=== PATIENT | female | born 1975 | race American Indian/Alaskan Native ===

== ENCOUNTER 2021-12-19 11:42 | Emergency (ER) | payer OTHER ==
--- NOTE | 2021-12-19 12:48 | Emergency Department Report ---
- General Stated Complaint: RT PINKY FINGER INJURY Time Seen by Provider: 12/19/21 12:40 - History of Present Illness Initial Comments: 46-year-old black female presents emergency department for evaluation of right fifth finger injury. She states that she was inside of a store, and a picture fell of the wall and the back of the cut her on her right fifth finger. She presents with laceration with bleeding controlled to that area. -: Sudden, hour(s) (1) Extremity Location: Right: Hand (Fifth finger) Place: other (Inside of a store) Patient Tetanus UTD: No Context: accidental Associated Symptoms: none Treatments Prior to Arrival: bandage - Related Data Allergies Allergy/AdvReac Type Severity Reaction Status Date / Time No Known Allergies Allergy Verified 12/19/21 12:58 ED Review of Systems ROS: Stated complaint: RT PINKY FINGER INJURY Other details as noted in HPI Comment: All other systems reviewed and negative Constitutional: denies: chills, fever Eyes: denies: eye pain ENT: denies: ear pain Respiratory: denies: cough, shortness of breath Skin: denies: change in color Neurological: denies: headache ED Physical Exam - General General appearance: alert, in no apparent distress - Head Head exam: Present: atraumatic, normocephalic - Eye Eye exam: Present: normal appearance. Absent: conjunctival injection - Neck Neck exam: Present: normal inspection - Respiratory Respiratory exam: Absent: respiratory distress - GI/Abdominal GI/Abdominal exam: Absent: distended - Extremities Exam Extremities exam: Present: normal inspection - Expanded Upper Extremity Exam Right Hand Wrist exam: Present: tenderness, laceration. Absent: swelling Hand L/R Front: 1 - Positive: laceration. Negative: normal inspection, nail injury (#), foreign body, amputation, avulsion Vascular: Present: normal capillary refill, radial pulse. Absent: vascular compromise, Pallo - Back Exam Back exam: Present: normal inspection - Neurological Exam Neurological exam: Present: alert, oriented X3 - Psychiatric Psychiatric exam: Present: normal affect, normal mood - Skin Skin exam: Present: warm, dry, normal color ED Course Vital Signs 12/19/21 12/19/21 12:55 12:58 Temperature 98.6 F 98.6 F Pulse Rate 80 80 Respiratory 16 16 Rate Blood Pressure 140/80 Blood Pressure 140/80 [Left] O2 Sat by Pulse 99 99 Oximetry - Laceration /Wound Repair Right Finger Wound Location: upper extremity (Right fifth finger) Wound Length (cm): 1 Wound's Depth, Shape: superficial, linear Wound Explored: clean Irrigated w/ Saline (ccs): 40 Betadine Prep?: No Wound Repaired With: Dermabond Progress: Well approximated. Patient tolerated well. ED Medical Decision Making - Medical Decision Making 46-year-old black female presents emergency department for evaluation of right fifth finger injury. She states that she was inside of a store, and a picture fell of the wall and the back of the cut her on her right fifth finger. She presents with laceration with bleeding controlled to that area. Superficial laceration to right fifth finger repaired per my procedure note. Tdap updated. Patient discharged home and advised to follow-up with primary c are provider or in the ED for any worsening or concerning symptoms. She verbalized understanding of and agreement with plan of care. Critical care attestation.: If time is entered above; I have spent that time in minutes in the direct care of this critically ill patient, excluding procedure time. ED Disposition Clinical Impression: Finger laceration Qualifiers: Encounter type: initial encounter Finger: little finger Damage to nail status: without damage Foreign body presence: without foreign body Laterality: right Qualified Code(s): S61.216A - Laceration without foreign body of right little finger without damage to nail, initial encounter Disposition: HOME / SELF CARE / HOMELESS Is pt being admited?: No Does the pt Need Aspirin: No Condition: Stable Instructions: Sutures, [place], or Adhesive Wound Closure, [id number] Additional Instructions: Monitor for signs of infection and report back to the emergency department if you notice any. Follow-up with your primary care provider as needed. Referrals: LISBETH COSTA MD [Staff Physician] - 3-5 Days Time of Disposition: 12:50
[2021-12-19 12:58] VITALS: BP 140/80
[2021-12-19] MEDS ORDERED: TETANUS,DIPH,PERTUSS(ACELL) VACCINE 0.5 ML SYRINGE IM ONE (13:00)
== END 2021-12-19 13:50 | disposition home or self-care (01) ==
LOC: ED 11:42
DX: S61.216A Laceration without foreign body of right little finger without damage to nail, initial encounter (principal); X58.XXXA Exposure to other specified factors, initial encounter; Y93.89 Activity, other specified; Y92.89 Other specified places as the place of occurrence of the external cause; Y99.8 Other external cause status
CPT/HCPCS: 90471; 90715; 99282